=== PATIENT | male | born 1970 | race Hispanic/Latino ===

== ENCOUNTER 2018-02-12 11:06 | Observation (INO) | payer OTHER ==
[~2018-02-12] VITALS: Ht 172.7 cm; Wt 135.2 kg
[2018-02-12] MEDS ORDERED: ASPIRIN 81 MG CHEW TAB PO ONE (11:45)
[2018-02-12 12:10] LABS: BASOPHILS # (AUTO) 0.1 (0.0-0.1); BASOPHILS % 0.6 % (0.0-1.0); EOSINOPHILS # (AUTO) 0.2 (0.0-0.4); EOSINOPHILS % 2.9 % (0.0-6.0); HEMOGLOBIN 15.1 g/dL (14.0-18.0); LYMPHOCYTES # (AUTO) 2.6 (1.0-3.2); LYMPHOCYTES % 32.8 % (18.0-39.1); MEAN CORPUSCULAR HEMOGLOBIN 28.5 pg (28-32); MEAN CORPUSCULAR HGB CONC 33.6 g/dL (31-35); MEAN CORPUSCULAR VOLUME 85.1 fL (81-99); MONOCYTES # (AUTO) 0.6 (0.2-0.8); MONOCYTES % 7.1 % (4.4-11.3); NEUTROPHILS # (AUTO) 4.5 (2.1-6.9); NEUTROPHILS % 56.2 % (38.7-80.0); PLATELET COUNT 245 x10e3/uL (140-360); RED BLOOD COUNT 5.29 x10e6/uL (4.3-5.7); RED CELL DISTRIBUTION WIDTH 12.8 % (11.7-14.4)
[2018-02-12 12:15] LABS: INR 1.15; PARTIAL THROMBOPLASTIN TIME 33.2 seconds (23.8-35.5); PROTHROMBIN TIME 13.8 seconds (11.9-14.5)
[2018-02-12 12:25] LABS: ALANINE AMINOTRANSFERASE 36 IU/L (0-55); ALBUMIN 3.5 g/dL (3.5-5.0); ALKALINE PHOSPHATASE 75 IU/L (40-150); ANION GAP 13.1 mmol/L (8-16); BLOOD UREA NITROGEN 11 mg/dL (7-26); BUN/CREATININE RATIO 12 (6-25); CARBON DIOXIDE 25 mmol/L (22-29); CHLORIDE 106 mmol/L (98-107); CREATINE KINASE 180 IU/L (30-200); CREATININE, SERUM 0.89 mg/dL (0.72-1.25); EST GLOMERULAR FILTRATION RATE > 60 ML/MIN (60-); GLUCOSE 109 mg/dL (74-118); POTASSIUM 4.1 mmol/L (3.5-5.1); SODIUM 140 mmol/L (136-145)
[2018-02-12 13:35] LABS: CHOL/HDL RATIO 4.6 (3.9-4.7)
--- NOTE | 2018-02-12 15:50 | Diagnostic Imaging Report ---
History: Right hemiparesis for 3 days Comparison studies: None Technique: Axial images were obtained from the skull base to the vertex. Coronal and sagittal reconstructions obtained from the axial data. Findings: Scalp/skull: Mild reticulation of the left high parietal vertex scalp which may be scarring or mild inflammation/contusion. No fractures, blastic or lytic lesions. Extra-axial spaces: No masses. No fluid collections. Brain sulci: Appropriate for age. Ventricles: Normal in size and configuration. No hydrocephalus. Parenchyma: No abnormal densities. No masses, hemorrhage, acute or chronic cortical vascular insults. Sellar/suprasellar region: No abnormalities Craniocervical junction: Patent foramen magnum. No Chiari one malformation. Atherosclerotic calcifications in the carotid siphons. IMPRESSION: No intracranial abnormalities. Preliminary report provided to Dr. Guzman at 12:44 PM on 02/12/[address] Perdomo. Signed by: Dr. Jonathan Peter M.D. on 02/12/2018 3:47 PM
[2018-02-12] MEDS: SODIUM CHLORIDE 0.9% 1000ML 1,000 ML IV SCH (17:25)
[2018-02-12] MEDS ORDERED: DOCUSATE SODIUM 100 MG CAP PO PRN (18:00)
[2018-02-12] MEDS ORDERED: ONDANSETRON HCL INJ 2 MG/ML VIAL IV PRN (18:00)
[2018-02-12] MEDS ORDERED: ACETAMINOPHEN 325 MG TAB PO PRN (18:00)
[2018-02-12] MEDS ORDERED: METOPROLOL SUCC50 MG PO (18:09)
[2018-02-12 19:09] VITALS: BP 138/71
[2018-02-12 20:00] VITALS: BP 138/71
[2018-02-12] MEDS: ATORVASTATIN 20 MG TAB PO SCH (22:24)
--- NOTE | 2018-02-12 22:39 | Diagnostic Imaging Report ---
CHEST 2 VIEWS, Technique: CHEST 2 VIEWS Comparison: None Clinical history: Shortness of breath DISCUSSION: Heart/mediastinum: Within normal limits. Lungs/pleural spaces: No consolidation or effusion. No pleural effusion or pneumothorax. IMPRESSION: No acute abnormality Signed by: Dr Valeri Lazcano MD on 02/12/2018 10:36 PM
--- NOTE | 2018-02-12 22:41 | History and Physical ---
PATIENT LOCATION: ER room 4. PRESENTING COMPLAINT: Numbness of right face and upper and lower extremity, started on Monday, off and on for the last 3 days. HISTORY OF PRESENT ILLNESS: A 47-year-old male with past history of hypertension was admitted from ER. Patient came to ER with his . Patient tells that he was attending a alliance party on Monday. While sitting in the chair, he started feeling suddenly numbness in the right side of the face, right arm and lower extremity. Patient felt this sensation persisting while walking, standing from sitting position. He did not seek any medical attention, went home. He did not also seek any medical attention yesterday. Patient's symptom was off and on. This morning he felt more weak. At that time, he decided to come to the ER. Patient denies any similar episode He denies any noncompliance with his medication. He was on metoprolol XL 50 mg daily given by his PCP, Dr. Alexandr Buenrostro. Patient tells his blood pressure at home was controlled with this medication. Also, patient denied any chest pain, palpitation, shortness of breath along with his symptom. He is afebrile. He denies any nausea, vomiting, diarrhea. He also denies any incontinence or difficulty in urination or micturition. Patient had a cardiac evaluation by Dr. Alexandr Buenrostro at his office sometime last year, was told he had an irregular heartbeat as per patient's statement. REVIEW OF SYSTEMS CONSTITUTIONAL: No fever, chills, rigor. ENT: No nasal congestion, no sore throat, no visual disturbance, no earache, no hearing problem. CARDIOVASCULAR: No chest pain, shortness of breath, palpitation. PULMONARY: No cough, no hemoptysis. GI: No abdominal pain, nausea, vomiting, passage of bloody stool or black stool. : No dysuria, no hematuria. MUSCULOSKELETAL, SKIN, LYMPHORETICULAR: No joint pain. No joint swelling. No skin rash. No swollen glands. NEUROLOGICAL: Numbness of the right side of the face, right upper and lower extremity off and on for 3 days as per HPI. No difficulty in speech, no difficulty in swallowing. HISTORY OF PAST SURGERY: He denies any history of surgery. HISTORY OF PAST MEDICAL ILLNESS: Hypertension. No history of diabetes, hyperlipidemia or CAD as per patient's statement. Cardiac dysrhythmia as per patient's statement. ALLERGIES: NO KNOWN MEDICATION ALLERGY. HOME MEDICATIONS: Toprol-XL 50 mg p.o. daily. No other medication. SOCIAL HISTORY: Patient lives at [place], [place], with his girlfriend. He has 1 daughter 25 years old. 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 HABITS: Patient denies smoking, drinking, substance abuse history. He used to smoke marijuana in the past, not in recent time as per patient's statement. FAMILY HISTORY: Patient's mother of heart attack. She was diabetic. She in her 60s. Patient's father is alive. He is hypertensive. Siblings: Patient's 1 sister of kidney failure, heart failure. Another brother had CAD status post stenting as per the patient's statement. VITALS TODAY: BP 122/77, pulse 80, temp 98.1, respiration 20, SpO2 97% at room air. PHYSICAL EXAMINATION GENERAL: Alert, not in acute distress. HENT: No pallor. No icterus. Oral mucosa moist. NECK: No JVD, no carotid bruits, no lymphadenopathy, no thyromegaly. HEART: S1 and S2 regular. No murmur. LUNGS: Clear to auscultation. ABDOMEN: Soft, nontender. No palpable mass. Bowel sounds active in all quadrants. EXTREMITIES: No edema, cyanosis or clubbing. NEUROLOGICAL: Muscle strength symmetric on both sides. Plantars flexor bilaterally. No facial asymmetry. Pupils equally reacting bilaterally. EOMI. No nystagmus. Right wrist Phalen sign negative. Tinel sign negative. LAB DATA: CBC: WBC 7.98, hemoglobin 15, hematocrit 45, platelet 245, MCV 85, RDW 12, neutrophil 56, lymphocyte 32. PT 13.8, INR 1.15, PTT 33.2. Chemistry panel: Sodium 140, potassium 4.1, chloride 106, CO2 25, anion gap 9, BUN 11, creatinine 0.89, glucose 109, calcium 9.0. Total bilirubin 0.9, AST 31, ALT 36, alk phos 75. CK 180, CK-MB 0.8, troponin I 0.001. Total protein 7.1, albumin 3.5, globulin 3.6. Total cholesterol 155, LDL 102, HDL 34, triglyceride 93. Urinalysis pending. EKG: Normal sinus rhythm with a rate of 67 beats per minute, no significant ST-T changes. Intervals within normal limits. RADIOLOGICAL DATA: CT head and brain without contrast: No intracranial abnormalities. Atherosclerotic calcification in the carotid siphons. ASSESSMENT AND PLAN 1. Right facial weakness and numbness along with weakness of upper and lower extremity for 3 days. Patient does not have any significant motor abnormality on examination at this time. His CT head is negative, but his symptoms are suspicious for acute ischemic event. He is beyond the period of tPA. Most importantly, he does not have any neurologic deficit at the present time. Neurology consult is requested from ER. Would follow neurologist's recommendation. Continue patient's aspirin for now. Also would request a carotid Doppler. Patient has carotid atherosclerosis on the CT scan. 2. Hypertension. Continue regular medication. 3. Hyperlipidemia. Continue patient on statin. 4. Cardiac arrhythmia by history. EKG shows normal sinus rhythm. Continue patient on telemetry. Patient wants to see Dr. Mendoza. Would request him to evaluate patient. Would order for an echocardiogram. 5. Morbid obesity. Patient might have underlying sleep apnea. Can have a sleep study as outpatient. DISCHARGE PLAN: Would depend upon neurologist's recommendation and patient's hospital course. Job#: [id number] EV
[2018-02-13] VITALS: BP 140/68
[2018-02-13 01:58] LABS: CLARITY,URINE CLEAR (CLEAR); COLOR,URINE YELLOW (YELLOW); KETONES,URINE NEGATIVE (NEGATIVE); LEUKOCYTE ESTERASE ,URINE NEGATIVE (NEGATIVE); NITRITE,URINE NEGATIVE (NEGATIVE); PROTEIN,URINE DIPSTICK NEGATIVE (NEGATIVE)
[2018-02-13 01:59] LABS: BILIRUBIN,URINE NEGATIVE (NEGATIVE); URINE UROBILINOGEN 0.2 mg/dL (0.2 - 1)
[2018-02-13 02:13] LABS: AMORPHOUS SEDIMENT,URINE MODERATE (FEW); BACTERIA,URINE RARE /HPF; EPITHELIAL CELLS,URINE RARE /LPF
[2018-02-13 02:32] LABS: AMPHETAMINES SCREEN,URINE NEGATIVE (NEGATIVE); BENZODIAZEPINES SCREEN,URINE NEGATIVE (NEGATIVE); PHENCYCLIDINE SCREEN,URINE NEGATIVE (NEGATIVE)
[2018-02-13 04:00] VITALS: BP 138/82
[2018-02-13] MEDS: SODIUM CHLORIDE 0.9% 1000ML 1,000 ML IV SCH ×4 (06:04→22:24)
[2018-02-13 06:26] LABS: BASOPHILS # (AUTO) 0.1 (0.0-0.1); BASOPHILS % 0.7 % (0.0-1.0); EOSINOPHILS # (AUTO) 0.3 (0.0-0.4); EOSINOPHILS % 3.1 % (0.0-6.0); HEMOGLOBIN 15.2 g/dL (14.0-18.0); LYMPHOCYTES # (AUTO) 2.9 (1.0-3.2); LYMPHOCYTES % 33.6 % (18.0-39.1); MEAN CORPUSCULAR HEMOGLOBIN 28.6 pg (28-32); MEAN CORPUSCULAR VOLUME 86.6 fL (81-99); MONOCYTES # (AUTO) 0.8 (0.2-0.8); MONOCYTES % 8.8 % (4.4-11.3); NEUTROPHILS # (AUTO) 4.6 (2.1-6.9); NEUTROPHILS % 53.5 % (38.7-80.0); PLATELET COUNT 236 x10e3/uL (140-360); RED BLOOD COUNT 5.31 x10e6/uL (4.3-5.7); RED CELL DISTRIBUTION WIDTH 12.8 % (11.7-14.4)
[2018-02-13 06:39] LABS: INR 1.06
[2018-02-13 06:50] LABS: ALANINE AMINOTRANSFERASE 34 IU/L (0-55); ALBUMIN 3.4 g/dL (3.5-5.0); ALBUMIN/GLOBULIN RATIO 0.9 (0.8-2.0); ALKALINE PHOSPHATASE 90 IU/L (40-150); ANION GAP 10.6 mmol/L (8-16); BLOOD UREA NITROGEN 11 mg/dL (7-26); BUN/CREATININE RATIO 14 (6-25); CALCIUM 8.8 mg/dL (8.4-10.2); CARBON DIOXIDE 24 mmol/L (22-29); CHLORIDE 105 mmol/L (98-107); EST GLOMERULAR FILTRATION RATE > 60 ML/MIN (60-); GLUCOSE 108 mg/dL (74-118); POTASSIUM 3.6 mmol/L (3.5-5.1); SODIUM 136 mmol/L (136-145)
[2018-02-13 07:09] LABS: THYROID STIMULATING HORMONE 4.421 uIU/mL (0.350-4.940)
[2018-02-13 07:20] VITALS: BP 139/82
[2018-02-13] MEDS: ASPIRIN 325 MG TAB EC PO SCH (08:30)
[2018-02-13] MEDS ORDERED: METOPROLOL SUCCINATE 50 MG TAB XL PO SCH (09:00)
[2018-02-13 12:00] VITALS: BP 154/87
--- NOTE | 2018-02-13 14:25 | Consultation ---
CARDIOLOGY CONSULTATION DATE OF CONSULTATION: February 13, 2018 REQUESTING PHYSICIAN: Dr. Smith Lewis. REASON FOR CONSULTATION: CVA. HISTORY OF PRESENT ILLNESS: This is a 47-year-old man with history of hypertension and abnormal heart rhythm per patient report, who presented to the ER with complaints of right-sided numbness and weakness. The patient denies any history of heart disease. He states he was in his usual state of health until Monday when he noticed right-sided numbness and weakness while at a republican. He did not seek medical attention and instead went home to go to sleep. Upon awakening, he still noted some weakness, but states it resolved. He ultimately presented to the ER on the advice of his family members. Of note, the patient reports he has had chest pain, which he described as a tightness off and on for years. It is not associated with shortness of breath, nausea, or diaphoresis. He states it is 4/10 in severity and denies any edema, orthopnea, or PND. Of note, he states he was supposed to get a stress test around this time, but has not had a chance to do so. REVIEW OF SYSTEMS: Negative except as per HPI. PAST MEDICAL HISTORY 1. Hypertension. 2. Report of abnormal heart rhythm. PAST SURGICAL HISTORY: None. ALLERGIES: PLEASE SEE EMR. MEDICATIONS: Please see medication list. SOCIAL HISTORY: No tobacco or illicit drugs. He drinks alcohol occasionally. 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 FAMILY HISTORY: Pertinent for heart failure in the family. PHYSICAL EXAM VITAL SIGNS: Temperature 97.1 degrees, pulse 74, respiratory rate 20, blood pressure 154/87, and oxygen saturation 98% on room air. GENERAL: Morbidly obese gentleman. No acute distress. Awake, alert, well-developed, well-nourished. HEENT: Normocephalic, atraumatic. Pupils equal. No scleral icterus. NECK: Supple. No thyromegaly. No cervical lymphadenopathy. No carotid bruits. LUNGS: Clear to auscultation bilaterally. No wheezes or crackles. CARDIOVASCULAR: Normal rate, regular rhythm. No murmur. Normal S1, S2. ABDOMEN: Soft, nontender. EXTREMITIES: No edema. NEURO: Nonfocal exam. Strength 5/5 bilaterally. LABS: WBC 8.65, hemoglobin 15.2, hematocrit 46, platelets 236. Sodium 136, potassium 3.6, chloride 105, CO2 of 24, BUN 11, creatinine 0.8. Troponin is less than 0.01. Cholesterol 155, LDL 102, HDL 34, triglycerides 93. TSH 4.42. EKG, normal sinus rhythm, nonspecific ST and T-wave abnormality. IMPRESSION 1. Transient ischemic attack. 2. Hypertension. 3. Chest pain. RECOMMENDATIONS: Trend cardiac enzymes. Echocardiogram has been performed; we will review the images once they are available. Agree with carotid Doppler. Note order for MRI by neurology. If patient rules out for myocardial infarction, plan for outpatient stress test as an outpatient given chronicity of his chest pain symptoms. Thank you for this consult. We will continue to follow. Please continue monitoring patient on telemetry while admitted for any evidence of atrial fibrillation. Job#: [id number] SUB
--- NOTE | 2018-02-13 14:44 | Consultation ---
DATE OF CONSULTATION: February 13, 2018 NEUROLOGY CONSULTATION HISTORY OF PRESENT ILLNESS: Mr. Romano is a 47-year-old [id number] man with past medical history significant for hypertension and obstructive sleep apnea, admitted to [facility] on February 12, 2018, with symptoms suspicious for a stroke. On the afternoon of February 10, 2018, the patient was sitting in a chair at a birthday republican when he experienced the acute onset of right hemibody weakness and numbness. Mr. Romano does not report a visual field cut or other disturbance, dizziness, or confusion. He reports possible dysarthria, possible expressive aphasia, and gait impairment which he attributed to weakness of the right leg. The patient's symptoms persisted over the next 2 days with some waxing and waning. Mr. Romano came to the emergency center at [facility] on February 12, 2018, after he was encouraged by several family members and friends to do so. Upon arrival in the emergency center, the patient was afebrile with a blood pressure of 122/77 mmHg and a pulse of 80 beats per minute. His neurological evaluation is documented as follows: Alert. Oriented times 3. Mood/affect normal. Mild dysarthria. Cranial nerve deficit present, as evidenced by a right facial droop (very mild). No cerebellar findings. Mild right-sided pronator drift (very mild). A CT of the brain without contrast was performed and did not show evidence of recent large territorial ischemia or hemorrhage. Mr. Romano was admitted to [facility] under observation status for further evaluation and treatment of his symptoms. Mr. Romano did previously experience similar symptoms affecting the left side of his face and left arm. He did not seek medical attention for these symptoms. REVIEW OF SYSTEMS: Chest pain, dysarthria, aphasia, right facial weakness and numbness, right arm and leg weakness, right arm and leg numbness, impairment of gait. Otherwise the 12-point review of systems is negative. PAST MEDICAL HISTORY: Hypertension, obstructive sleep apnea. PAST SURGICAL HISTORY: None. PAST HOSPITALIZATIONS: None. FAMILY HISTORY: The patient's paternal grandfather is . His medical history is unknown. The patient's paternal grandmother is from congestive heart failure. The patient's maternal grandparents are . Their medical histories are unknown. The patient's father is alive and has hypertension. Mr. Romano's mother is . She had coronary artery disease with 2 heart attacks as well as 2 strokes. The patient has one brother who is alive. He has peripheral vascular disease. One sister is . She had end-stage renal disease (congenital renal disease?) and congestive heart failure. Mr. Romano has a 25-year-old daughter from whom he is estranged. SOCIAL HISTORY: The patient is . He obtained his GED. Mr. Romano works as a [employer]. He endorses occasional tobacco use as well as occasional alcohol use. He reports a remote history of marijuana use. Last use was approximately 20 years ago. HOME MEDICATIONS: Metoprolol succinate ER 50 mg by mouth daily. ALLERGIES: NO KNOWN DRUG ALLERGIES. NO KNOWN FOOD ALLERGIES. NO KNOWN ALLERGIES TO LATEX. NO KNOWN ALLERGIES TO IODINE OR OTHER CONTRAST MATERIALS. PHYSICAL EXAMINATION: VITAL SIGNS: Height 68 inches, weight 298 pounds, BMI 45.3 kg per meter squared. Blood pressure 136/82 mmHg, pulse 86 beats per minute, respiratory rate 20 breaths per minute, oxygen saturation 99% on room air. GENERAL: The patient is awake and alert, does not appear distressed. Obese. HEENT: Normocephalic, atraumatic. Pupils are equal, round, and reactive to light. Moist mucous membranes. NECK: Supple. No appreciable thyromegaly. No appreciable carotid bruits. CARDIOVASCULAR: S1, S2, regular rate and rhythm. No murmurs, rubs, or gallops. RESPIRATORY: Clear to auscultation bilaterally. No wheezes, rhonchi, or rales. EXTREMITIES: The skin is warm and dry. No clubbing, cyanosis, or edema. The posterior tibial and dorsalis pedis pulses are 2+ and symmetric. SKIN: No rashes or lesions. NEUROLOGIC Memory/Attention: The patient is awake and alert, oriented to person, place, time, and situation. Cranial Nerves: Cranial nerve 1--Not tested. Cranial nerve 2, 3, 4, and 6--Pupils are equal and round, react briskly to light (from 4 mm to 2 mm). Extraocular movements intact. No nystagmus. Cranial nerve 5--Sensation to light touch and pinprick is intact in the bilateral V1 through V3 distributions. Strength of the temporalis and masseter muscles is within normal limits. Cranial nerve 7--Flattening of the right nasolabial fold. Facial movements are symmetric. Strength is within normal limits. Cranial nerve 8--Hearing is intact to finger rub bilaterally. Cranial nerve 9, 10--The soft palate elevates equally and symmetrically. Cranial nerve 11--Normal strength of the bilateral sternocleidomastoid and trapezius muscles. Cranial nerve 12--The tongue protrudes midline and moves symmetrically from side to side. Strength: Bulk is normal. Strength is 5/5 in the bilateral deltoids, biceps, triceps, wrist flexors and extensors, finger flexors and extensors, intrinsic hand muscles, hip flexors, knee flexors and extensors, ankle dorsiflexion and plantarflexion, and intrinsic foot muscles. Tone is normal. DTRs: Deep tendon reflexes are 1+ and symmetric at the triceps, biceps, brachioradialis, patellas, and Achilles. Plantar responses are flexor bilaterally. Sensation: Sensation is intact to light touch and pinprick in both arms and both legs. Cerebellar: Afhyxf-lwon-fomunu and heel-shirley movements are intact without dysmetria or other impairment. Gait: Deferred. Speech: Spontaneous speech is mildly dysarthric without aphasia. Repetition is intact. Involuntary Movements: None. Pronator Drift: None. LABORATORY DATA: Sodium 136, potassium 3.6, chloride 105, carbon dioxide 24, anion gap 10.6, BUN 11, creatinine 0.80, estimated GFR greater than 60, BUN to creatinine ratio 14, glucose 108, calcium 8.8. Total bilirubin 0.7, AST 27, ALT 34, alkaline phosphatase 90. Total protein 7.1, albumin 3.4, globulin 3.7, albumin to globulin ratio 0.9. Creatine kinase 180, CK-MB 0.80, troponin I less than 0.001. B-natriuretic peptide 17.0. Total cholesterol 155, triglycerides 93, LDL cholesterol 102, HDL cholesterol 34. TSH 4.421. The CBC with differential and platelets reveals a white blood cell count of 8.65 with a normal differential. The hemoglobin and hematocrit are 15.2 and 46.0, respectively. The platelet count is 236. PT 13.0, INR 1.06, PTT 33.2. A urinalysis is unremarkable. A urine drug screen is negative. DIAGNOSTIC STUDIES: Electrocardiogram February 12, 2018: Normal sinus rhythm at [address] of the brain without contrast February 12, 2018: On my review, there is no evidence of recent large territorial ischemia, hemorrhage, mass, or mass effect. Brain volumes are appropriate for age. There are findings compatible with chronic small-vessel ischemic disease. Chest x-ray February 12, 2018: No acute abnormality. ASSESSMENT AND PLAN: Mr. Romano is a 47-year-old rvnx-hzst-atwooxsk man with past medical history significant for hypertension, obstructive sleep apnea, and occasional tobacco use, who presents with right-sided deficits suspicious for a subcortical stroke in the left middle cerebral artery distribution. On neurological examination, the patient has flattening of the right nasolabial fold as well as mild dysarthria. The patient's laboratory data and other diagnostic studies have been reviewed and are documented above. RECOMMENDATIONS: 1. Hemoglobin A1c. 2. An echocardiogram has been ordered and is pending. Follow up the results. 3. Bilateral carotid artery ultrasound with Doppler has been ordered and is pending. Follow up the results. 4. An MRI of the brain without contrast and MRA of the brain without contrast have been ordered and are pending. Follow up the results. 5. Aspirin 325 mg by mouth daily for stroke prophylaxis. 6. Allow permissive hypertension pending the results of vessel imaging. The patient's home medication of metoprolol will be held. 7. The patient's total cholesterol is below the stated goal of 200. However, his LDL cholesterol is above the stated goal of 70. Continue treatment with atorvastatin 20 mg by mouth at bedtime daily as prescribed by the primary service. 8. Follow up the results of the hemoglobin A1c. 9. GI prophylaxis with Pepcid 20 mg by mouth twice daily, before meals. DVT prophylaxis with Lovenox 40 mg subcutaneously daily. 10. Speech and physical therapy consultations will be ordered. 11. Defer treatment of the remaining medical comorbidities to the primary and other services. Thank you for this consultation. I will continue to follow this patient while he remains in the hospital. Time spent: 70 minutes. Job#: [id number] EV MTDD
[2018-02-13 16:00] VITALS: BP 138/91
[2018-02-13] MEDS: FAMOTIDINE 20 MG TAB PO SCH (16:30)
[2018-02-13] MEDS: ENOXAPARIN SOD INJ 40 MG/0.4 ML SYR SC SCH (17:00)
[2018-02-13 20:00] VITALS: BP 144/73
[2018-02-13] MEDS: ATORVASTATIN 20 MG TAB PO SCH (21:30)
[2018-02-14] VITALS (10 sets, daily range): BP systolic 130–185; BP diastolic 72–91
[2018-02-14] MEDS: FAMOTIDINE 20 MG TAB PO SCH ×2 (09:09→16:47)
[2018-02-14] MEDS: ASPIRIN 325 MG TAB EC PO SCH (09:09)
[2018-02-14] MEDS ORDERED: METOPROLOL SUCCINATE 50 MG TAB XL PO SCH (09:26)
[2018-02-14] MEDS: SODIUM CHLORIDE 0.9% 1000ML 1,000 ML IV SCH ×2 (10:21→19:20)
[2018-02-14] MEDS ORDERED: HYDRALAZINE HCL 20 MG/ML VIAL IV PRN (16:00)
[2018-02-14] MEDS: ENOXAPARIN SOD INJ 40 MG/0.4 ML SYR SC SCH (16:47)
[2018-02-14] MEDS: ATORVASTATIN 20 MG TAB PO SCH (20:34)
[2018-02-14] MEDS: METOPROLOL TARTRATE 50 MG TAB PO SCH (20:34)
--- NOTE | 2018-02-14 22:14 | Progress Note ---
DATE: February 14, 2018 CARDIOLOGY PROGRESS NOTE SUBJECTIVE: The patient denies any chest pain or shortness of breath. OBJECTIVE: VITAL SIGNS: Temperature 95.4 degrees, pulse 75, respiratory rate 18, blood pressure 133/72, oxygen saturation 95% on room air. GENERAL: Morbidly obese man. No acute distress. Awake and alert. LUNGS: Clear to auscultation bilaterally. No wheezes or crackles. CARDIOVASCULAR: Normal rate, regular rhythm. No murmur. Normal S1, S2. ABDOMEN: Soft, nontender. EXTREMITIES: No edema. CARDIAC MEDICATIONS: 1. Metoprolol tartrate 50 mg p.o. q.12 h. 2. Atorvastatin 20 mg p.o. nightly. 3. Aspirin 325 mg p.o. q.a.m. LABS: None today. TELEMETRY: Normal sinus rhythm. IMPRESSION: 1. Suspected transient ischemic attack. 2. Hypertension, uncontrolled. 3. Chest pain. RECOMMENDATIONS: No evidence of myocardial infarction on serial cardiac biomarkers. Echocardiogram demonstrated normal LV size and function with mild concentric LVH and carotid Dopplers were without evidence of hemodynamically significant stenosis. No arrhythmias have been seen on telemetry to explain the patient's symptoms. Unfortunately, the patient was unable to undergo MRI due to being unable to sit in the MRI machine. Further evaluation per neurology. Plan for outpatient nuclear stress test for further evaluation of his chest pain given the chronicity of his symptoms. Thank you for this consult. We will continue to follow. Job#: [id number] [employer]
[2018-02-15] VITALS: BP 130/70
[2018-02-15] MEDS: SODIUM CHLORIDE 0.9% 1000ML 1,000 ML IV SCH (03:36)
[2018-02-15 04:00] VITALS: BP 120/56
[2018-02-15] MEDS: FAMOTIDINE 20 MG TAB PO SCH ×2 (07:30→16:30)
[2018-02-15 08:59] VITALS: BP 141/77
[2018-02-15] MEDS ORDERED: METOPROLOL SUCCINATE 50 MG TAB XL PO SCH (09:00)
[2018-02-15] MEDS: ASPIRIN 325 MG TAB EC PO SCH (09:00)
[2018-02-15] MEDS: METOPROLOL TARTRATE 50 MG TAB PO SCH ×2 (09:00→17:50)
--- NOTE | 2018-02-15 15:33 | Progress Note ---
DATE: February 15, 2018 CARDIOLOGY PROGRESS NOTE SUBJECTIVE: The patient denies chest pain or shortness of breath. OBJECTIVE VITALS: Temperature 97.1 degrees, pulse 63, respiratory rate 18, blood pressure 141/77, oxygen saturation 98% on room air. GENERAL: Obese gentleman in no acute distress. Awake and alert. LUNGS: Clear to auscultation bilaterally. No wheezes or crackles. CARDIOVASCULAR: Normal rate. Regular rhythm. No murmur. Normal S1 and S2. ABDOMEN: Soft and nontender. EXTREMITIES: No edema. CARDIAC MEDICATIONS 1. Metoprolol tartrate 50 mg p.o. q.12 h. 2. Aspirin 325 mg p.o. q.a.m. 3. Enoxaparin 40 mg subcutaneous daily. 4. Atorvastatin 20 mg p.o. at bedtime. LABS: None today. Telemetry is normal sinus rhythm. IMPRESSION 1. Suspected transient ischemic attack. 2. Hypertension, poorly controlled. 3. Chest pain, chronic. RECOMMENDATIONS: No evidence of myocardial infarction on serial cardiac biomarkers. Echocardiogram demonstrated normal LV size and function with mild concentric LVH. Carotid Dopplers were without evidence of hemodynamically significant stenosis. No arrhythmias have been seen on telemetry today to explain the patient's symptoms. Unfortunately, he was unable to undergo MRI due to being unable to sit in the MRI machine. Further evaluation per neurology. Given the patient is currently not having active chest pain, plan for outpatient nuclear stress test. We will add losartan for blood pressure control. Thank you for this consult. We will continue to follow. Job#: [id number] [employer]
[2018-02-15 16:19] VITALS: BP 117/55
[2018-02-15] MEDS: ENOXAPARIN SOD INJ 40 MG/0.4 ML SYR SC SCH (17:00)
[2018-02-15] MEDS: ATORVASTATIN 20 MG TAB PO SCH (17:50)
[2018-02-16] MEDS ORDERED: LOSARTAN POTASSIUM 25 MG TAB PO SCH (09:00)
== END 2018-02-15 20:11 | disposition home or self-care (01) ==
LOC: ER 11:06 → ERHOLD 15:54 → MED/SURG3 18:45
PROVIDERS: ADMIT Internal Medicine; ATTEND Internal Medicine
DX: G45.9 Transient cerebral ischemic attack, unspecified (principal); I10 Essential (primary) hypertension; E78.5 Hyperlipidemia, unspecified; I49.9 Cardiac arrhythmia, unspecified; E66.01 Morbid (severe) obesity due to excess calories; G47.33 Obstructive sleep apnea (adult) (pediatric); Z72.0 Tobacco use; R07.9 Chest pain, unspecified; Z68.42 Body mass index [BMI] 45.0-49.9, adult
CPT/HCPCS: 36415 ×2; 70450; 71046; 80053 ×2; 80061; 80307; 81001; 82550; 82553; 83036; 83880; 84443; 84484 ×2; 85025 ×2; 85610 ×2; 85730; 92523; 93005 ×2; 93306; 93880; 97139; 97161; 99284; G0378 ×4; J0360; J1650 ×3; J7030 ×4